=== PATIENT | male | born 1990 | race Caucasian/White ===

== ENCOUNTER 2018-12-08 23:54 | Emergency (ER) | payer SELFPAY ==
[2018-12-08 23:56] VITALS: BP 125/86; PULSE 138; RESP 18; TEMP 36.3; O2SAT 99; BMI 18.0
--- NOTE | 2018-12-09 00:28 | CT_ITS ---
HISTORY: TRAUMA,FALL,15 CM X 15CM HEMATOMA TO RT BUTTOCK EXAMINATION: CT Pelvis W/O Contrast TECHNIQUE:Routine noncontrast bone CT protocol was performed of the pelvis. 2-D reformats were performed by the technologist. A radiation dose optimization technique was used for this scan. IV Contrast dosage and agent: None. COMPARISON: None FINDINGS: SOFT TISSUES: Within the subcutaneous fat, superficial to the right gluteus shawna muscle, there is a heterogeneous mass. This mass is mostly hyperdense. Its margins are slightly indistinct with induration to the surrounding fat. There is mostly a fat plane dividing between the deep margin of this mass and the displaced right gluteus medius muscle. The densest portion is, and the most well-defined portions of the mass measure 8.3 x 8 x 4.5 cm. This is consistent with a hematoma. No radiopaque foreign body. BONES/JOINTS: No acute fracture or subluxation. Normal alignment. Preservation of the joint space. No sclerotic or destructive changes. CT/Pelvis without IV Contrast IMPRESSION: Within the subcutaneous fat of the right buttock there is an 8.3 x 8 x 4.5 cm hyperdense heterogeneous mass most consistent with a hematoma. There is a part centrally within this mass that is more lucent and hypodense measuring 3 cm. This of unknown etiology, but could be more active bleeding within the hematoma of blood that is not yet coagulated, and is therefore less dense. Additionally, however, this could be serous fluid within the central of an old hematoma that is becoming liquefied. There is induration of the surrounding fat. The bleeding does not appear to extend into the muscle. No evidence of pelvic fracture. Individualized dose optimization techniques were used for this CT. at 0109 Reported and signed by: Usman Caldwell MD Electronically Signed: Usman Caldwell MD at 1:08 EDT Tel , Service support ,
--- NOTE | 2018-12-09 00:28 | ED.VIS.GEN ---
History of Present Illness Chief Complaint: Other, Pain/Inj Detail of Chief Complaint: Buttock injury Informant: Patient Onset: Today Current Severity: Mild Maximum Severity: Moderate Narrative: Patient presents after falling and injuring his right buttock. He states that he and a friend were making bets about being able to jump a scooter from the road to the sidewalk. After they had each had a couple shots of alcohol, patient tried to jump his scooter when it came out from underneath him and he landed on his right buttock. He has a large area of swelling to the area. He has been able to get up and ambulate. He states he does want to make sure nothing was broken. Past Medical History - Allergies and Home Meds Allergies/Adverse Reactions: Allergies pollen extracts Allergy (Verified 12/08/18 23:56) Other Primary Care Physician: Care Physician,No Primary [Primary Care Provider] - Prior records reviewed: Yes Past Medical History: - - Reviewed Lives: With Family Alcohol: Occasional Review of Systems General: Denies: Chills, Fever Eyes: Denies: Visual changes - bilaterally ENT: Denies: Bilateral ear pain Cardiovascular: Denies: Chest pain Respiratory: Denies: Dyspnea Gastrointestinal: Denies: Abdominal pain Musculoskeletal: Reports: - - 15 x 15 cm firm hematoma to the right buttock. No open wound noted. Skin: Reports: Wounds - As above Physical Exam Vital Signs/Narrative: Vital Signs Temp Pulse Resp BP Pulse Ox 12/08/18 23:56 97.4 F L 138 H 18 125/86 H 99 General: Well nourished Eyes: EOMI ENT: Moist mucous membranes Neck: Supple, - - No C-spine tenderness. Cardiovascular: Regular rhythm, Tachycardia Respiratory: No distress, CTA bilaterally Abdomen: Soft, Nontender Back: - - 15 x 15 cm firm hematoma to the right buttock. Extremities: Nontender Skin: - - Hematoma as above Neurological: Alert, Oriented x3, - - Moves all 4 extremities without difficulty. Diagnostic/Tx/Re-eval Impressions Pelvis CT 12/09/18 00:28 IMPRESSION: Within the subcutaneous fat of the right buttock there is an 8.3 x 8 x 4.5 cm hyperdense heterogeneous mass most consistent with a hematoma. There is a part centrally within this mass that is more lucent and hypodense measuring 3 cm. This of unknown etiology, but could be more active bleeding within the hematoma of blood that is not yet coagulated, and is therefore less dense. Additionally, however, this could be serous fluid within the central of an old hematoma that is becoming liquefied. There is induration of the surrounding fat. The bleeding does not appear to extend into the muscle. No evidence of pelvic fracture. Individualized dose optimization techniques were used for this CT. at 0109 Reported and signed by: Usman Caldwell MD Electronically Signed: Usman Caldwell MD at 1:08 EDT Tel , Service support , 12/09/18 00:28 CT Pel [Pelvis without IV Contrast] [CT] Stat - Medical Decision Making Test results are discussed with the patient and significant other at bedside. She will be driving and will be with him tonight. Heart rate is currently 106. Patient does not wish for anything for pain. ED Disposition - Plan for ED Patient: Disposition: Home or Assisted Living Instructions: Hematoma Referrals: Ivan Pisano MD [STAFF PHYSICIAN] - As Needed
--- NOTE | 2018-12-09 01:21 | ED.RN ---
PT AND EDUCATED ON WRITTEN AND VERBAL DISCHARGE INSTRUCTIONS. PT VERBALIZES UNDERSTANDING AND DENIES ANY FURTHER QUESTIONS.
== END 2018-12-09 01:24 | disposition home or self-care (01) ==
PROVIDERS: Emergency Provider Emergency Medicine
DX: S30.0XXA Contusion of lower back and pelvis, initial encounter (principal); X58.XXXA Exposure to other specified factors, initial encounter
CPT/HCPCS: 72192; 99282

== ENCOUNTER 2019-09-25 13:07 | Emergency (ER) | payer BC, SELFPAY ==
[2019-09-25 13:08] VITALS: BP 141/101; PULSE 115; RESP 16; TEMP 36.8; O2SAT 96; BMI 22.7
--- NOTE | 2019-09-25 13:52 | CT_ITS ---
STUDY: CT ABDOMEN AND PELVIS WITHOUT CONTRAST REASON FOR EXAM: Male, 29 years old. ABD PAIN X 2 DAYS, ?KS, DAILY MARIJUA[place] RADIATION DOSAGE (If Supplied By Facility): CTDIvol = ( 6.04 ) mGy, DLP = ( 292.95 ) mGycm TECHNIQUE: Transaxial images were obtained from the dome of the diaphragm to the symphysis pubis without oral contrast, and without intravenous contrast. Sagittal and coronal images were reconstructed. Individualized dose optimization techniques were used for this CT. COMPARISON: None. FINDINGS: The visualized lung bases are unremarkable. The visualized portions of the heart are within normal limits. Normal liver. Normal gallbladder and extrahepatic biliary system. Normal spleen. Normal pancreas. Normal bilateral adrenal glands. Normal right kidney. Normal left kidney. Normal visualized stomach. Normal small intestine. Normal colon. The appendix is visualized and appears normal. Normal abdominal aorta. Normal inferior vena cava. Normal retroperitoneum. Normal urinary bladder. Normal abdominal wall. Straightening of the normal lumbar lordosis. CT/Abdomen/Pelvis without Cont IMPRESSION: Normal unenhanced CT of the abdomen and pelvis. Electronically Signed: Magan Rader, at 15:00 EDT , Service support ,
--- NOTE | 2019-09-25 13:53 | ED.DCSUM_ITS ---
History of Present Illness Chief Complaint: Abd Pain Informant: Patient Onset: Yesterday Context: Gradual Onset Timing: Intermittent Current Severity: Moderate Maximum Severity: Moderate Narrative: The patient is a 29-year-old male who is otherwise healthy with no significant medical or surgical history that presents to the emergency department with abdominal pain. The patient states that this been waxing and waning since yesterday. He states he will get a sharp pain in his right lower quadrant. He states if he sits and rests, the pain will seem to go away. He denies any fevers or chills. He is noticed that his urine has been dark, but he does not see any herb blood. He states he is otherwise been in his normal state of health. Prior similar symptoms: No Recent Illness/Hospitalization: No Past Medical History - Allergies and Home Meds Allergies/Adverse Reactions: Allergies pollen extracts Allergy (Verified 09/25/19 13:11) Other Primary Care Physician: Care Physician,No Primary [Primary Care Provider] - Prior records reviewed: Yes Past Medical History: None Surgical History: no surgical history Smoking Status: Current every day smoker Review of Systems General: Denies: Chills, Fever, Sweats Eyes: Denies: Visual changes - bilaterally, Diplopia ENT: Denies: Rhinorrhea, Sore throat Cardiovascular: Denies: Chest pain, Palpitations Respiratory: Denies: Dyspnea, Cough, Dyspnea on exertion Gastrointestinal: Reports: Abdominal pain. Denies: Nausea, Vomiting, Diarrhea, Melena, Hematochezia Genitourinary: Denies: Dysuria, Hematuria, Frequency Musculoskeletal: Denies: Back pain, Extremity Pain Skin: Denies: Rash, Wounds Neurological: Denies: Headache, Weakness, Numbness Physical Exam Vital Signs/Narrative: Vital Signs Temp Pulse Resp BP Pulse Ox 09/25/19 13:08 98.3 F 115 H 16 141/101 H 96 Inital Vital Signs reviewed: Yes General: Well nourished, Well developed, No Acute Distress Head: Normocephalic, Atraumatic Eyes: Perrl, EOMI ENT: Moist mucous membranes, No rhinorrhea Neck: Supple, Nontender Cardiovascular: Regular rate, Regular rhythm, No murmurs Respiratory: No distress, CTA bilaterally, Chest nontender Abdomen: Soft, Nontender, Nondistended, Normal bowel sounds, - - Cannot re- create the pain with deep palpation. Back: Nontender, Normal Inspection Extremities: Nontender, No edema Skin: Normal color, No rash Neurological: Alert, Oriented x3, Cranial nerves II-XII grossly intact, Normal Strength, Normal Sensation Psychological: Normal affect, Normal Mood Diagnostic/Tx/Re-eval Clinical Impression(s) from Imaging Studies Abdomen/Pelvis CT 09/25/19 13:52 IMPRESSION: Normal unenhanced CT of the abdomen and pelvis. Electronically Signed: Magan Rader, at 15:00 EDT , Service support , Abnormal Lab Results 09/25/19 09/25/19 09/25/19 14:00 14:00 14:55 WBC 12.7 H RBC 4.83 Hgb 15.1 Hct 44.0 MCV 91.1 MCH 31.3 MCHC 34.3 RDW Std Deviation 39.7 RDW Coeff of Nicholas 11.9 Plt Count 238 MPV 10.5 Immature Gran % (Auto) 0.500 Neut % (Auto) 74.9 H Lymph % (Auto) 15.[address] [place] % (Auto) 8.2 Eos % (Auto) 0.5 Baso % (Auto) 0.4 Absolute Neuts (auto) 9.5 H Absolute Lymphs (auto) 1.97 Nucleated RBC % 0 Sodium 141 Potassium 3.6 Chloride 105 Carbon Dioxide 28.0 Anion Gap 8 BUN 10 Creatinine 0.77 Estim Creat Clear Calc 132.87 Est GFR (MDRD) Af Amer 154 Est GFR (MDRD) Non-Af 128 BUN/Creatinine Ratio 13.0 Glucose 99 Calcium 9.1 Urine Color Yellow Urine Clarity Sl. Cloudy Urine pH 8.0 Ur Specific [place] 1.010 Urine Protein 15 H Urine Glucose (UA) Normal Urine Ketones Negative Urine Occult Blood Negative Urine Nitrite Negative Urine Bilirubin Negative Urine Urobilinogen Normal Ur Leukocyte Esterase 25 H - Medical Decision Making The patient presents with intermittent right lower quadrant pain. He states is been colicky in nature. He does describe some dark urine. I cannot re-create his pain on exam. Screening labs were obtained. He is mild leukocytosis, otherwise labs are unremarkable. Patient underwent CT of his abdomen and pelvis. There is no evidence of acute intra-abdominal pathology. Appendix is visualized and is normal. There is no evidence of obstructing kidney stone. On reevaluation, the patient is resting comfortably. His urine does not show evidence of infection. At this point, I do not have a great etiology for his pain. However, I do feel that he is safe for outpatient follow-up. Patient will be discharged home. Impression 1. Right lower quadrant pain ED Disposition - Plan for ED Patient: Instructions: ED Unknown Causes of Abdominal Pain Male Referrals: Care Physician,No Primary [Primary Care Provider] -
[2019-09-25] MEDS: Ketorolac 30 MG/ML Syringe IV (14:14)
[2019-09-25] MEDS: 0.9% Normal Saline 1,000 ML 250 ML IV (14:14)
[2019-09-25] MEDS: Ondansetron 4 MG/2 ML Vial IV (14:15)
[2019-09-25 14:16] LABS: Absolute Lymphocyte Count 1.97 X10^3/uL (0.83-4.51); Absolute Neutrophil Count 9.5 X10^3/uL (2.0-7.7); Basophil# 0.05 X10^3/uL; Basophil% 0.4 % (0-1); Eosinophil# 0.06 X10^3/uL; Eosinophils% 0.5 % (0-5); Hemoglobin 15.1 g/dL (13.0-16.5); Lymphocyte # 1.97 X10^3/ul (4.0); Lymphocyte % 15.5 % (19-41); Mean Corp Hgb Conc 34.3 g/dL (32-36); Mean Corpuscular Hgb 31.3 pg (27.0-32.0); Mean Corpuscular Volume 91.1 fL (80-94); Mean Platelet Vol. 10.5 fl (6.2-12.0); Monocyte# 1.04 X10^3/uL; Monocyte% 8.2 % (0-10); NRBC Flagged by Analyzer 0 % (0-5); Neutrophil # 9.49 X10^3/uL (2.7-7.7); Neutrophil % 74.9 % (47-70); Platelet Count 238 K/mm3 (150-450); RBC Distribution Width CV 11.9 % (11.6-14.6); RBC Distribution Width SD 39.7 fl (35.1-43.9); Red Blood Count 4.83 M/mm3 (4.6-6.2); White Blood Count 12.7 K/mm3 (4.4-11.0)
[2019-09-25 14:22] LABS: Anion Gap 8 (5-15); BUN 10 mg/dL (7-18); Calcium,Total 9.1 mg/dL (8.5-10.1); Chloride 105 mmol/L (98-107); Creatinine, Serum 0.77 mg/dL (0.70-1.30); EST Glomerular Filtration Rate 128 mL/min (>60); Est Glom Filt Rate - Afr Amer 154 mL/min (>60); Estimated Creatinine Clearance 132.87 ml/min; Glucose 99 mg/dL (74-106); Potassium 3.6 mmol/L (3.5-5.1); Sodium Level 141 mmol/L (136-145)
[2019-09-25 15:10] LABS: Bacteria 0 SEEN /hpf (None Seen); Mucous, Urine 0 SEEN /hpf (<or=2+); Red Blood Cells-Urine 0 SEEN /hpf (0-5)
[2019-09-25 15:51] LABS: Color, Urine Yellow (Yellow); Glucose, Dipstick Normal (Normal); Ketone-Dipstick Negative (Negative); Leukocyte Esterase-Dipstick 25 /ul (Negative); Nitrite-Dipstick Negative (Negative); Occult Blood-Urine Negative /ul (Negative); Protein-Dipstick 15 mg/dl (Negative); Urine Bilirubin Dipstick Negative (Negative); Urine Clarity Sl. Cloudy (Clear); Urine Urobilinogen Normal (Normal)
[2019-09-25 16:06] LABS: Squamous Epithelial Cells - UA 0-5 SEEN /hpf (0-5); White Blood Cells 0-5 SEEN /hpf (0-5)
[2019-09-25 16:26] VITALS: BP 119/60; PULSE 70; RESP 16; O2SAT 98
--- NOTE | 2019-09-25 16:26 | ED.RN ---
IV DC'ED, CATHETER INTACT, SMALL GAUZE DRESSING PLACED. DISCHARGE INSTRUCTIONS GIVEN TO AND REVIEWED WITH PATIENT, PATIENT DENIES QUESTIONS OR CONCERNS AND VOICES UNDERSTANDING OF DISCHARGE INSTRUCTIONS. PT AMBULATES OUT OF ROOM WITHOUT DIFFICULTY.
== END 2019-09-25 16:28 | disposition home or self-care (01) ==
LOC: ED 15:18
PROVIDERS: Emergency Provider Emergency Medicine
DX: R10.31 Right lower quadrant pain (principal); F17.200 Nicotine dependence, unspecified, uncomplicated
CPT/HCPCS: 74176; 80048; 81001; 85025; 96361; 96374; 96375; 99283; J7030; A4216; J2405